=== PATIENT | female | born 1970 | race Caucasian/White ===

== ENCOUNTER → 2018-11-25 | Outpatient (CLI) | payer BC ==
[~2018-11-25] MED LIST: ALEVE220 MG PO; ATORVASTATIN CA40 MG PO; DULOXETINE HCL60 MG PO; IMDUR 30 MG TAB30 M1 PO; MEGARED OMEGA-1 EAC1 PO; MOBIC15 MG PO; NORCO 5-325 TA1 EACH PO; PROTONIX40 M1 PO; SIMVASTATIN40 MG PO; TIZANIDINE HCL4 M1 PO; TOPROL XL50 MG PO; TURMERIC COMPL1 EACH PO; ULTRAM 50MG TAB50 MG PO; VENLAFAXIN75 MG/1 T1 PO; VICODIN 5-5001 EACH PO; VITAMIN D35000 UNI1 PO
== END ==
LOC: M.MRI 10-24 17:30
DX: M51.16 Intervertebral disc disorders with radiculopathy, lumbar region (principal); F41.9 Anxiety disorder, unspecified; E78.5 Hyperlipidemia, unspecified; M19.90 Unspecified osteoarthritis, unspecified site

== ENCOUNTER → 2019-09-18 | Outpatient (CLI) | payer BC | LOC: M.MRI 16:59 | DX: M50.21 Other cervical disc displacement, high cervical region (principal) ==

== ENCOUNTER → 2020-11-16 | Outpatient (CLI) | payer BC | LOC: M.MRI 14:44 | PROVIDERS: ATTEND Family Medicine | DX: M50.221 Other cervical disc displacement at C4-C5 level (principal); Z98.1 Arthrodesis status ==